=== PATIENT | male | born 1945 | race Caucasian/White ===

== ENCOUNTER 2018-11-14 15:58 | Day surgery (SDC) | payer MEDICARE, OTHER ==
[~2018-11-14] VITALS: Ht 182.9 cm; Wt 86.2 kg
[2018-11-14] MEDS ORDERED: OMEPRAZOLE20 MG PO (16:10)
[2018-11-14] MEDS ORDERED: METFORMIN HCL500 MG PO (16:10)
[2018-11-14] MEDS ORDERED: ADVAIR 250-501 EACH INH (16:11)
[2018-11-14] MEDS ORDERED: ATORVASTATIN CA80 MG PO (16:11)
[2018-11-14] MEDS ORDERED: VENTOLIN HFA18 GM INH (16:11)
[2018-11-14] MEDS ORDERED: TAMSULOSIN HCL0.4 MG PO (16:11)
[2018-11-14] MEDS ORDERED: SPIRIVA18 MCG INH (16:11)
--- NOTE | 2018-11-14 18:17 | NUR ---
11/14/18 1817 Hernandez,Radha Laird 02 DECREASED TO 7 L/MIN VIA MASK. PATIENT DENIES PAIN.
--- NOTE | 2018-11-14 18:50 | NUR ---
PATIENT ARRIVED FROM PACU AT 1835. PATIENT REPORTS 2/10 THROAT DISCOMFORT AT THIS TIME, GIVEN ICE WATER TO SIP. PATIENT IS ON 3L OF OXYGEN FOR 94% SATS. PATIENT HAD GENERAL ANESTHESIA AND IS SOMEWHAT SLEEPY AT THIS TIME. PATIENT ORIENTED TO CALL LIGHT.
--- NOTE | 2018-11-14 19:00 | NUR ---
REPORT RECEIVED FROM PUBLIC SAFETY DIRECTOR. PATIENT RESTING IN BED. DENIES TOILETING NEED. DENIES PAIN. 3L NC IN PLACE, O2 SAT 90%. ENCOURAGED PATIENT TO TAKE DEEP BREATHS.
--- NOTE | 2018-11-14 22:00 | NUR ---
PATIENT IS ALERT WATCHING TV. DENIES TOILETING NEEDS AT THIS TIME. DENIES PAIN. CONTINUES TO REQUIRE 3L NC TO MAINTAIN SATS >88%. PATIENT NORMALLY DOES NOT WEAR OXYGEN. WILL ATTEMPT TO TIRTATE WHEN CLINICALLY INDICATED. PATIENT AWARE OF THE PLAN. POST OP VS WNL.
--- NOTE | 2018-11-14 22:30 | NUR ---
PATIENT UP TO THE BATHROOM WITHOUT O2 VIA NC. PATIENT STEADY ON HIS FEET. LARGE AMOUNT OF UNCOLLECTED URINE OUTPUT. PATIENT RETURNED TO THE BED AND STATES "I'M A LITTLE LIGHT HEADED". O2 SAT FOUND TO BE 80% ON ROOM AIR. 3L NC PLACED ON PATIENT. O2 SAT INCREASED TO 90%. PATIENT REPORTS BEING FRUSTERATED AND NOT WANTING TO STAY IN THE HOSPITAL. DISCUSSED IMPORTANT OF MAINTAINING O2 SAT GREATER THAN 88%. PATIENT VERBALIZED UNDERSTANDING AND STATES HE WILL STAY IF IT IS RECOMMENDED. DISCUSSED WITH AVIONICS SHOP SUPERVISOR AND SUPERVISOR SHUTTLE VENEERING. PATIENT WILL STAY THE NIGHT FOR OBSERVATION OF O2 SATS. PATIENT PROVIDED WITH SOME SUGER FREE PUDDING. PATIENT DENIES FURTHER NEEDS.
--- NOTE | 2018-11-14 22:53 | NUR ---
PT RESTING IN BED WITH EYES CLOSED. PT DOES NOT WAKE WHILE OVEN OPERATOR AUTOMATIC IN ROOM. SAO2 87% ON 3 LPM, INCREASED TO 4 LPM AND SAO2 DOES NOT INCREASE. SAO2 88% ON 5 LPM. RT AND MD NOTIFIED BY PRIMARY RN. CALL LIGHT IN REACH.
--- NOTE | 2018-11-14 23:00 | NUR ---
SPOKE WITH DR. GUPTA. ORDERS TO ALLOW PATIENT TO USE HOSPITAL CPAP SINCE HE DOES NOT HAVE HIS OWN. PATIENT AGREEABLE TO THIS. PLACED BY RT. PATIENT O2 SAT 95% ON CPAP WITH 4L.
--- NOTE | 2018-11-15 02:00 | NUR ---
RT TITRATED O2 BLEED-IN TO 2L FROM 4L. PATIENT'S O2 SAT DECREASED TO 86% AFTER SEVERAL MINS. TITRATED TO 4L BLEED IN VIA CPAP. PATIENT SLEEPING SOUNDLY.
--- NOTE | 2018-11-15 04:00 | NUR ---
PATIENT SLEEPING SOUNDLY. RR 20. O2 SAT 90% ON 4L VIA CPAP.
--- NOTE | 2018-11-15 06:15 | NUR ---
PATIENT REPORTS FEELING "FINE" THIS MORNING. NO PAIN, ONLY SMALL AMOUNT OF DISCOMFORT IN HIS THROAT. PATIENT IS ANXIOUS TO GO HOME. UNABLE TO TITRATE TO ROOM AIR. ENCOURAGED HIM TO TAKE DEEP BREATHS AND WHEN HE IS READY TO GET UP STAFF WITH WALK WITH HIM IN THE HALLWAYS. PATIENT DENIES FURTHER NEEDS.
--- NOTE | 2018-11-15 06:16 | NUR ---
PATIENT SLEPT WELL. VS STABLE, NO PAIN OR NAUSEA. PATIENT WAS SHORT-STAY THAT WAS UNABLE TO TITRATE TO ROOM AIR. REQUIRING 3-5L NC AND CPAP WHILE SLEEPING. DR. GUPTA AWARE. PATIENT IS SBA FOR AMULATING. FULL LIQUID DIET.
--- NOTE | 2018-11-15 07:10 | CONS ---
[facility] [address] [place], [place] [address] Signed DATE OF CONSULTATION: 11/14/2018 CHIEF COMPLAINT: Esophageal foreign body. HISTORY OF PRESENT ILLNESS: Trina is a 73-year-old gentleman, who was eating a pork chop earlier today and now it is lodged in his upper esophagus. He actually drove himself to the emergency room because his is wheelchair bound. I was asked by the ER physician to come see him here urgently in the emergency room. In the meantime, he has several spit bags with him, but his airway is wide open and he is able to talk to us quite readily. PAST MEDICAL HISTORY: COPD, type 2 diabetes, hypercholesterolemia, gastroesophageal reflux disease, benign prostatic hyperplasia, anal fissure, and obstructive sleep apnea with CPAP. PAST SURGICAL HISTORY: Includes an anal sphincterotomy, appendectomy, and tonsillectomy. SOCIAL HISTORY: He was smoking up to three packs a day back in the , but has not smoked in 20 years. He does not drink. His is Dianelys, at [phone]. His sister is Dr. Rachel Rojas, and his primary care provider is Dr. Shanice Nguyen at [phone] in [place], [place]. 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 He lives in [place], [place]. He prefers the [facility] in [place]. His father had bone cancer. REVIEW OF SYSTEMS: He had 10 systems reviewed and nothing new to add. No metal in his body. ALLERGIES: None. MEDICATIONS: 1. Metformin. 2. Omeprazole. 3. Advair. 4. Atorvastatin. 5. Flomax. 6. Albuterol. 7. Spiriva. PHYSICAL EXAMINATION: Electronically Signed By: DIVYA GUPTA MD 11/15/18 0710 PATIENT NAME: TRINA SOLIS CONSULTATION DATE OF : 49 REPORT #: [id number] PHYSICIAN: DIVYA GUPTA MD PCP: SHANICE NGUYEN MD REPORT IS CONFIDENTIAL AND NOT TO BE RELEASED WITHOUT AUTHORIZATION [facility] [address] [place], [place] [address] Signed VITAL SIGNS: Blood pressure is 169/74, his heart rate in 90s, respiratory rate 24, his temperature is 97.5, he is 99% on room air. He is 6 feet tall, 86 kg. GENERAL: Trina is a 73-year-old gentleman, who is sitting in his ER bed. He has several spit bags with him along with multiple facial tissues. He can talk. His speech is unobstructed, but he has copious amounts of saliva every 20 seconds or so. LUNGS: He has moderately distant breath sounds. HEART: Difficult to hear, but it sounds regular rate and rhythm. ABDOMEN: Protuberant, soft, and nontender. LABORATORY DATA: EKG pending. RADIOGRAPHIC STUDIES: None. ASSESSMENT AND PLAN: Trina is a 73-year-old gentleman, who presents with a piece of pork in his proximal esophagus. Trina tells me he has never had an upper endoscopy. I reviewed with him the nature of an upper endoscopy along with the risks including, but not limited to gas bloating, crampy abdominal pain, bleeding, perforation requiring surgery, and missed diagnosis. In addition, we will need an anesthesia provider to intubate him and protect his airway and provide suction during the procedure. In almost all cases, these patients will go home afterwards. He has expressed understanding and agrees to above plan. Divya Gupta MD ALB/MODL /[id number] cc: MD Shanice Piña MD Copies: DIVYA GUPTA MD Electronically Signed By: DIVYA GUPTA MD 11/15/18 0710 PATIENT NAME: TRINA SOLIS CONSULTATION DATE OF : 49 REPORT #: [id number] PHYSICIAN: DIVYA GUPTA MD PCP: SHANICE NGUYEN MD REPORT IS CONFIDENTIAL AND NOT TO BE RELEASED WITHOUT AUTHORIZATION [address] [place], [place] [address] Signed SHANICE NGUYEN MD ~ Electronically Signed By: DIVYA GUPTA MD 11/15/18 0710 PATIENT NAME: TRINA SOLIS CONSULTATION DATE OF : 49 REPORT #: [id number] PHYSICIAN: DIVYA GUPTA MD PCP: SHANICE NGUYEN MD REPORT IS CONFIDENTIAL AND NOT TO BE RELEASED WITHOUT AUTHORIZATION
--- NOTE | 2018-11-15 07:10 | OR ---
[facility] [address] [place], [place] [address] Signed DATE OF OPERATION: 11/14/2018 SURGEON: Divya Gupta MD PREOPERATIVE DIAGNOSIS: Proximal esophageal foreign body (pork). POSTOPERATIVE DIAGNOSIS: Proximal esophageal foreign body (pork). PROCEDURE PERFORMED: Upper endoscopy with removal of foreign body. ESTIMATED BLOOD LOSS: None. FINDINGS: Trina indeed had pork right at the upper esophageal sphincter. It took just a few minutes to remove some pieces on one side and it slid down nicely. On the side he had a break in the mucosa, probably 0.5 cm wide by 1.5 cm to 2 cm in length, which should heal just fine. There was too much food in his cardia to tell for sure, but he probably has a small hiatal hernia. 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 He said he smoked up to three packs of cigarettes a day when he was young, but he quit 20 years ago. He lives with his , Dianelys, who is in a wheelchair. He has fairly significant COPD and has to use CPAP for his obstructive sleep apnea. Earlier today, he was eating a pork chop and a piece became lodged in his proximal esophagus. As expected, every 20-30 seconds he was spitting up saliva. He ended up driving himself actually to the emergency room for evaluation. I was called by the ER physician upon his entry into the emergency room. I had come in immediately and I had spoken with Trina. Thank goodness, his airway was secure, but it is very obvious he has a proximal esophageal obstruction with all the saliva he was producing and his inability to swallow. Trina tells me he has acid reflux, but he has never had an upper endoscopy. He does take omeprazole. To his knowledge, he has not had any trouble before with an esophageal stricture. I reviewed with Trina the nature of an upper endoscopy along with the need for endotracheal tube intubation to protect his airway. He understands the nature of the test along with the risks including, but not limited to gas bloating, crampy abdominal pain, bleeding, perforation requiring surgery, and missed Electronically Signed By: DIVYA GUPTA MD 11/15/18 0710 PATIENT NAME: TRINA SOLIS OPERATIVE REPORT DATE OF : 49 REPORT #: [id number] PHYSICIAN: DIVYA GUPTA MD PCP: SHANICE NGUYEN MD REPORT IS CONFIDENTIAL AND NOT TO BE RELEASED WITHOUT AUTHORIZATION [facility] [address] [place] [id number] Signed diagnosis. He had expressed understanding and wished to proceed. DESCRIPTION OF PROCEDURE: Trina was taken into endoscopy suite and placed under general endotracheal tube anesthesia by our nurse microeconomics professor. A bite block was utilized. The adult gastroscope was introduced and he did have a little edema on one retinoid, the other one was uninvolved. The adult gastroscope was introduced and we immediately encountered his pork in his upper esophagus. We could see the break in the mucosa on the side, less than 1 cm wide, maybe 1.5 cm or so in length. We took several bites with our routine biopsy forceps on one side of the pork and removed them one at a time. We left our scope in the upper esophagus and simply brought the forceps back through the scope itself. After this, with our next bite at the biopsy forceps, then the pork passed into the mid esophagus and out into the stomach. We went ahead and passed the scope into the stomach and we suctioned out as much fluid as we could, however there is some particulate food matter there and we could not suction it all out. We did not take any biopsies in the stomach. No obvious ulcerations. Upon retroflexion of scope, it looks like he has a small hiatal hernia. However, there were some liquid and food particles in the way and my vision was a bit obscured. The scope was then withdrawn back up through the area of the GE junction, which was compliant without stricture. He has minimal disruption to the Z-line. No obvious Avendano mucosa. No distal or middle esophagitis. As the scope came back up to the proximal esophagus course, we could see the irritation from the pork lying against the esophagus as well as that small break in the mucosa. We could see that the ET tube was in place and again some edema on one side of the retinoids, but the other side was uninvolved. After this, the gas was suctioned out and the gastroscope removed. Trina tolerated the procedure quite well. RECOMMENDATIONS: Willian will be discharged to home after recovery and we will see him in the office in 7 to 14 days. He might consider a barium swallow and a repeat upper endoscopy to better evaluate his esophagus and take biopsies from the stomach. Divya Gupta MD ALB/MODL /[id number] Electronically Signed By: DIVYA GUPTA MD 11/15/18 0710 PATIENT NAME: TRINA SOLIS OPERATIVE REPORT DATE OF : 49 REPORT #: [id number] PHYSICIAN: DIVYA GUPTA MD PCP: SHANICE NGUYEN MD REPORT IS CONFIDENTIAL AND NOT TO BE RELEASED WITHOUT AUTHORIZATION [facility] [address] [place], [place] [address] Signed cc: MD Dr. Shanice Piña, [place], [place] Copies: DIVYA GUPTA MD ~ Electronically Signed By: DIVYA GUPTA MD 11/15/18 0710 PATIENT NAME: TRINA SOLIS OPERATIVE REPORT DATE OF : 49 REPORT #: [id number] PHYSICIAN: DIVYA GUPTA MD PCP: SHANICE NGUYEN MD REPORT IS CONFIDENTIAL AND NOT TO BE RELEASED WITHOUT AUTHORIZATION
--- NOTE | 2018-11-15 07:27 | EKG ---
[facility] [address] [facility] [place] [address] Signed Normal sinus rhythm Low voltage QRS Cannot rule out Anterior infarct , age undetermined Abnormal ECG No previous ECGs available Confirmed by JOSE SHEIKH MD ([id number]) on 11/15/2018 7:26:58 AM Electronically Signed By: JOSE SHEIKH MD 11/15/18 0727 PATIENT NAME: TRINA SOLIS Electrocardiogram DATE OF : 49 PHYSICIAN: JOSE SHEIKH MD REPORT #: [id number] REPORT IS CONFIDENTIAL AND NOT TO BE RELEASED WITHOUT AUTHORIZATION
--- NOTE | 2018-11-15 07:31 | NUR ---
RECIEVED BEDSIDE REPORT FROM ERLIN ORTIZ. PT REMAINS ON 3L O2, WITH SATS IN THE HIGH 80S.
--- NOTE | 2018-11-15 08:04 | NUR ---
UP IN CHAIR, PT WAS SATING 94% ON 3L. TIRATED DOWN TO 2L. WILL MONITOR.
--- NOTE | 2018-11-15 08:27 | NUR ---
RT ASSESSED PT'S O2 NEEDS. PT NEEDS 4L 02 WITH ANY KIND EXERTION AND 2L AT REST. PT TOLD RT THAT HE WILL REFUSE OXYGEN. RN WILL DISCUSS.
--- NOTE | 2018-11-15 08:39 | NUR ---
SPOKE WITH PT REGARDING HIS NEED FOR HOME O2. PT STATED THAT HE UNDERSTANDS THE NEED FOR O2, BUT IS NOT HAPPY ABOUT IT. RN EXPLAINED IT MAY NOT BE PERMENENT, IT MAY JUST BE WHILE HIS LUNGS HEAL FROM THIS TRAUMA. PT STATED HE WOULD ALLOW A HOME HEALTH COMPANY TO COME IN LONG THEY CAME AFTER HE GOT HOME TO NOT SCARE HIS . ALSO DISCUSSED GETTING A TAXI TICKET HOME D/T AN ORDER NOT TO DRIVE FOR 24 HRS. RN PUSH BENCH OPERATOR HELPER DAVID AUTHORIZED AN EXTRA TAXI TICKET TO RETURN FOR HIS VEHICLE. PT WAS AGREEABLE TO THIS PLAN.
--- NOTE | 2018-11-17 13:58 | NUR ---
RECEIVED PHONE REQUEST FROM [facility] BE FAXED PATIENT WAS DISCHARGED OVER WEEKEND ON HOME OXYGEN. THEY RECEIVED ORDER AND RT QUALIFIER BUT DID NOT RECEIVE CHART NOTES. FAXED TO [facility] [phone] SENT FACE SHEET/RT QUALIFIER/ED REPORTS/CONSULT/OP REPORT/PROG NOTE/DISCHARGE PACKET. FAX CONFIRMATION RECEIVED 11/17/18 1203PM.
== END 2018-11-15 09:35 | disposition home or self-care (01) ==
LOC: ED 15:58 → DS 17:14 → ED 17:14 → MS 17:14 → DS 11-15 09:35 → MS 11-15 09:35
PROVIDERS: Colon & Rectal Surgery
PROC: 0DC18ZZ Extirpation of Matter from Upper Esophagus, Via Natural or Artificial Opening Endoscopic (ICD-10-PCS; principal; 2018-11-14 17:41)
DX: T18.128A Food in esophagus causing other injury, initial encounter (principal); J44.9 Chronic obstructive pulmonary disease, unspecified; G47.33 Obstructive sleep apnea (adult) (pediatric); E11.9 Type 2 diabetes mellitus without complications; E78.5 Hyperlipidemia, unspecified; K21.9 Gastro-esophageal reflux disease without esophagitis; N40.0 Benign prostatic hyperplasia without lower urinary tract symptoms; Z87.891 Personal history of nicotine dependence; Z79.84 Long term (current) use of oral hypoglycemic drugs; Z79.51 Long term (current) use of inhaled steroids; Z79.899 Other long term (current) drug therapy
CPT/HCPCS: 80048; 85025; 93005; 93010; 94660; 94761; 94762; 99285-25; J0330; J1100; J2250; J2405; J2704

== ENCOUNTER 2020-08-06 16:02 | Emergency (ER) | payer MEDICARE, OTHER ==
[~2020-08-06] VITALS: Ht 182.9 cm; Wt 88.5 kg
[~2020-08-06 16:02] MED LIST: ADVAIR 250-501 EACH INH; ATORVASTATIN CA80 MG PO; METFORMIN HCL500 MG PO; OMEPRAZOLE20 MG PO; SPIRIVA18 MCG INH; TAMSULOSIN HCL0.4 MG PO; VENTOLIN HFA18 GM INH
[2020-08-07] MEDS ORDERED: NORCO 5-325 TA1 EACH PO (01:00)
== END 2020-08-07 01:17 | disposition home or self-care (01) ==
LOC: ED 16:02
DX: R10.9 Unspecified abdominal pain (principal); J44.9 Chronic obstructive pulmonary disease, unspecified; E11.9 Type 2 diabetes mellitus without complications; Z79.899 Other long term (current) drug therapy; Z79.84 Long term (current) use of oral hypoglycemic drugs
CPT/HCPCS: 74176; 80053; 81001; 85025; 96374; 99284-25; J1885

== ENCOUNTER 2024-03-26 07:10 | Day surgery (SDC) | payer MEDICARE, OTHER ==
[~2024-03-26] VITALS: Ht 175.3 cm; Wt 71.4 kg
[~2024-03-26 07:10] MED LIST changes: +CEFAZOLIN SODIUM 2 GM/20 ML SYR IV SCH; +IBLOOD GLUCOSE TEST STRIP 1 EA TEST VI PRN; +JARDIANCE10 MG PO; +LACTATED RINGER'S 1,000 ML IV SCH; +LIDOCAINE HCL 1% 5 ML SDV INJ ONE; +NORCO 5-325 TA1 EACH PO; +WIXELA 500-501 EACH INH
[2024-03-26 07:31] VITALS: BP 114/60
[2024-03-26] MEDS ORDERED: IBU-200200 MG PO (07:33)
[2024-03-26] MEDS ORDERED: LIDOCAINE HCL 0.5% 50 ML SDV ONE (07:46)
[2024-03-26] MEDS ORDERED: propofoL 200 MG/20 ML VIAL ONE (07:46)
[2024-03-26] MEDS ORDERED: MIDAZOLAM HCL 2 MG/2 ML VIAL ONE (07:49)
[2024-03-26] MEDS ORDERED: BACITRACIN 0.9 GM 1 PKT PKT ONE (08:28)
[2024-03-26] MEDS ORDERED: BUPIVACAINE HCL 0.25% 50 ML MDV ONE (08:28)
[2024-03-26] MEDS ORDERED: NALOXONE HCL 0.4 MG SYR IV PRN ×2 (08:45→09:30)
[2024-03-26] MEDS ORDERED: HYDROCODONE/ACETA 5/325 TAB PO PRN (08:45)
[2024-03-26] MEDS ORDERED: HYDROCODON-ACE1 EA10 PO (09:24)
[2024-03-26] MEDS ORDERED: droPERidol 5 MG/2 ML VIAL IV PRN (09:30)
[2024-03-26] MEDS ORDERED: HYDROmorphone HCL 1 MG/ML SYR IV PRN (09:30)
[2024-03-26] MEDS ORDERED: IBLOOD GLUCOSE TEST STRIP 1 EA TEST VI PRN (09:30)
[2024-03-26] MEDS ORDERED: PROCHLORPERAZINE EDISYLATE 10 MG/2 ML VIAL IV PRN (09:30)
[2024-03-26] MEDS ORDERED: fentaNYL citrate 50 MCG/ML SDV IV PRN (09:30)
[2024-03-26] MEDS ORDERED: ondansetron HCL 4 MG/2 ML VIAL IV PRN (09:30)
--- NOTE | 2024-03-26 09:35 | NUR ---
03/26/24 0935 Melissa Claros PATIENT AWAKE AND IS ASKING FOR WATER. HOB IS ELEVATED. PATIENT IS GIVEN ICED WATER AND IS DOING WELL WITH THAT.
[2024-03-26 09:50] VITALS: BP 117/66
--- NOTE | 2024-03-26 10:30 | OR ---
[facility] [address] [place], [place] [address] Signed DATE OF OPERATION: 03/26/2024 SURGEON: Alexander Atkins MD PREOPERATIVE DIAGNOSIS: Carpal tunnel syndrome, right. POSTOPERATIVE DIAGNOSIS: Carpal tunnel syndrome, right. PROCEDURE PERFORMED: Carpal tunnel release, right. DEICER INSPECTOR ELECTRIC: None. ANESTHESIA: Jagruti block. TOURNIQUET TIME: 20 minutes. BRIEF HISTORY: Trina is a 78-year-old gentleman with progressive worsening of numbness and pain in his hand. Nerve conduction studies confirmed carpal tunnel. Risks, benefits, and alternatives of surgery were discussed with him and he elected to proceed. DESCRIPTION OF OPERATION: Once consent was obtained, he was taken to the operating room. After adequate anesthesia he was placed on the operating room table. All downside pressure points were well padded. The arm was prepped and draped in a standard sterile fashion after establishment of the block. The carpal tunnel was approached through a 1.5 cm incision in the distal wrist crease, carried through the skin and subcutaneous tissue. Palmaris longus was identified, retracted and protected. The transverse carpal ligament was dissected free of overlying soft tissue under loupe magnification. The ligament was then transected approximately a cm and distally to the distal extent again under direct visualization. The canal was then palpated and found to be completely released. The wound was copiously irrigated with normal saline, closed with 3-0 nylon and injected with 5 mL of 0.25% Marcaine plain. The wound was then dressed with bacitracin, Adaptic, 4 x 8s, and gauze. Electronically Signed By: ALEXANDER ATKINS MD 03/26/24 1030 PATIENT NAME: TRINA SOLIS OPERATIVE REPORT DATE OF : 49 REPORT #: [id number] PHYSICIAN: ALEXANDER ATKINS MD PCP: NO PRIMARY CARE PHYSICIAN REPORT IS CONFIDENTIAL AND NOT TO BE RELEASED WITHOUT AUTHORIZATION [facility] [address] [facility] [place], [place] [address] Signed He tolerated the procedure well. All sponge, needle, and instrument counts were correct. Alexander Atkins MD BA/MODL /[id number] Copies: ~ Electronically Signed By: ALEXANDER ATKINS MD 03/26/24 1030 PATIENT NAME: TRINA SOLIS OPERATIVE REPORT DATE OF : 49 REPORT #: [id number] PHYSICIAN: ALEXANDER ATKINS MD PCP: NO PRIMARY CARE PHYSICIAN REPORT IS CONFIDENTIAL AND NOT TO BE RELEASED WITHOUT AUTHORIZATION
== END 2024-03-26 10:03 | disposition home or self-care (01) ==
LOC: DS 07:10
PROVIDERS: ATTEND Specialist
PROC: 01N50ZZ Release Median Nerve, Open Approach (ICD-10-PCS; principal; 2024-03-26 09:05)
DX: G56.01 Carpal tunnel syndrome, right upper limb (principal); E11.9 Type 2 diabetes mellitus without complications; Z79.84 Long term (current) use of oral hypoglycemic drugs; Z79.899 Other long term (current) drug therapy; Z87.891 Personal history of nicotine dependence
CPT/HCPCS: J0690; J2250; J2704; J7121